=== PATIENT | female | born 1945 | race Caucasian/White ===

== ENCOUNTER 2016-04-23 10:41 | Day surgery (SDC) | payer MEDICARE, OTHER ==
[~2016-04-23] VITALS: Ht 172.7 cm; Wt 97.0 kg
[~2016-04-23 10:41] MED LIST: LACTATED RINGERS 1,000 ML IV SCH; SODIUM CHLORIDE FLUSH 3 ML SYR IV PRN; ceFAZolin 2,000 MG in SODIUM CHLORIDE VIAL (PF) 20 ML IV ONE
[2016-04-23 10:52] VITALS: BP 156/72
[2016-04-23] MEDS ORDERED: DEXAMETHASONE 4 MG/ML (DECADRON) VIAL ONE (11:36)
[2016-04-23 11:41] LABS: BILIRUBIN,URINE Negative (Negative); CLARITY,URINE Cloudy; COLOR,URINE Yellow; GLUCOSE, URINE (UA) Negative (Negative); LEUKOCYTE ESTERASE ,URINE Trace (Negative)
[2016-04-23 11:55] LABS: URINE CENTRIFUGED VOLUME 12 mL
--- NOTE | 2016-04-23 12:08 | NUR ---
Talked with Dr. Joe's office and with Guero Bella yesterday in [facility] and they both stated that we did not need them since they were drawn on 04/14/16
[2016-04-23] MEDS ORDERED: POVIDONE IODINE 10% OINTMENT (BETADINE) 30 GM TUBE TOP ONE (12:11)
[2016-04-23] MEDS ORDERED: ALFENTANIL 500 MCG/ML (ALFENTA) 5 ML AMP IV ONE (12:43)
[2016-04-23] MEDS ORDERED: LIDOCAINE 2% (XYLOCAINE) 20 ML VIAL INJ ONE (12:43)
[2016-04-23] MEDS ORDERED: MIDAZOLAM 2 MG/2 ML (VERSED) VIAL ONE (12:43)
[2016-04-23] MEDS ORDERED: ROPIVACAINE 1% 10 MG/ML (NAROPIN) 20 ML AMPUL ONE (12:43)
[2016-04-23] MEDS ORDERED: PROPOFOL 20 ML IV ONE ×2 (12:45)
[2016-04-23 14:18] VITALS: BP 119/83
[2016-04-23 14:43] VITALS: BP_SYST 119; BP_SYST 156; BP_DIAS 80; BP_DIAS 83
== END 2016-04-23 14:58 | disposition home or self-care (01) ==
LOC: ASC 10:41
PROVIDERS: ATTEND Podiatrist
DX: M20.12 Hallux valgus (acquired), left foot (principal); E13.319 Other specified diabetes mellitus with unspecified diabetic retinopathy without macular edema; Z79.4 Long term (current) use of insulin; Z79.84 Long term (current) use of oral hypoglycemic drugs; R82.99 Other abnormal findings in urine
CPT/HCPCS: 28292; 81003; 81015; 87077; 87088; 87186; A9270; J2001; J2250; J2795; J7120